=== PATIENT | female | born 1965 | race Caucasian/White ===

== ENCOUNTER 2016-05-22 08:38 | Emergency (ER) | payer MEDICAID ==
[~2016-05-22] VITALS: Ht 172.7 cm; Wt 56.7 kg
[2016-05-22 09:27] LABS: Basophils # (auto) 0 uL; Basophils % (auto) 0.5 % (0.0-2.0); Eosinophils # (auto) 0.1 uL; Eosinophils % (auto) 1.7 % (0.0-7.0); Hematocrit 46.8 % (36.0-46.0); Hemoglobin 16.2 g/dL (12.2-16.2); Lymphocytes # (auto) 1.3 uL; Lymphocytes % (auto) 36.3 % (10.0-50.0); Mean Corpuscular Hemoglobin 32.6 pg (28.0-32.0); Mean Corpuscular Hgb Conc. 34.6 g/dL (32.0-36.0); Mean Corpuscular Volume 94.3 fL (80.0-100.0); Mean Platelet Volume 9.6 fL (7.4-10.4); Monocytes # (auto) 0.5 uL; Neutrophils # (auto) 1.7 uL; Neutrophils % (auto) 48.5 % (37.0-80.0); Platelet Count (auto) 132 10^3/uL (140-450); Red Cell Distribution Width 12.6 % (11.6-16.0); White Blood Cell 3.5 10^3/uL (4.4-10.8)
[2016-05-22 09:51] LABS: Albumin 4.1 g/dL (3.4-5.0); Alkaline Phosphatase 53 U/L (45-117); Anion Gap 13 (5-15); Aspartate Aminotransferase 19 U/L (15-37); BUN/Creatinine Ratio 14.5; Bilirubin, Total 0.5 mg/dL (0.2-1.0); Blood Urea Nitrogen 11 mg/dL (7-18); Calcium 8.9 mg/dL (8.5-10.1); Carbon Dioxide 21 mmol/L (21-32); Chloride 108 mmol/L (98-107); GFR African American 104 mL/min; GFR Non-African American 86 mL/min; Glucose 100 mg/dL (74-106); Magnesium 2.2 mg/dL (1.6-2.6); Potassium 3.4 mmol/L (3.5-5.1); Sodium 142 mmol/L (136-145); Total Protein 8.3 g/dL (6.4-8.2)
[2016-05-22] MEDS ORDERED: SODIUM CHLORIDE 0.9% 1,000 ML IV ONE (10:57)
[2016-05-22] MEDS ORDERED: POTASSIUM CHL 10% (20 MEQ/15ML) ORAL SOLN PO ONE (11:00)
[2016-05-22] MEDS ORDERED: ALBUTEROL SULF 2.5 MG/0.5ML(0.5%) NEB SOLN NEB ONE (11:00)
[2016-05-22] MEDS ORDERED: IPRATROPIUM BROM 0.5 MG/2.5ML INH SOL NEB ONE (11:00)
[2016-05-22] MEDS ORDERED: cefTRIAXone 1GM/50ML D5W 50 ML IV ONE (11:00)
[2016-05-22] MEDS ORDERED: POTASSIUM CHL 20 Meq TABLET PO ONE (11:30)
[2016-05-22] MEDS ORDERED: POTASSIUM CHL 10 Meq TABLET PO ONE (11:45)
[2016-05-22 12:15] VITALS: BP 133/80
== END 2016-05-22 14:02 | disposition home or self-care (01) ==
LOC: ER 08:39
DX: J45.909 Unspecified asthma, uncomplicated (principal); E87.6 Hypokalemia
CPT/HCPCS: 36415; 71020; 80053; 83735; 84443; 84484; 85025; 93005; 94640; 96365; 99285; J0696; J7030